=== PATIENT | male | born 1980 | race African-American/Black ===

== ENCOUNTER 2018-03-19 22:06 | Emergency (ER) | payer OTHER ==
[~2018-03-19] VITALS: Ht 172.7 cm; Wt 62.1 kg
[~2018-03-19 22:06] MED LIST: DOCU-138 PO; FERR-63 PO; LORA1TAB PO; MULT-1146 PO; OMEP40CA34 PO
[2018-03-20] MEDS ORDERED: IBUPROFEN 600MG TABLET PO ONE (03:30)
[2018-03-20 04:24] VITALS: BP 131/83
== END 2018-03-20 04:15 | disposition home or self-care (01) ==
LOC: ER 22:46
DX: M65.4 Radial styloid tenosynovitis [de Quervain] (principal); D64.9 Anemia, unspecified; J45.909 Unspecified asthma, uncomplicated; K21.9 Gastro-esophageal reflux disease without esophagitis
CPT/HCPCS: 99283

== ENCOUNTER 2018-08-26 21:43 | Emergency (ER) | payer OTHER ==
[~2018-08-26] VITALS: Ht 172.7 cm; Wt 60.1 kg
[2018-08-26 22:37] VITALS: BP 118/80
[2018-08-27] MEDS ORDERED: ALBUTEROL (0.083%) 2.5MG/3ML NEB HHN STA (00:46)
== END 2018-08-27 01:21 | disposition home or self-care (01) ==
LOC: ER 21:43
DX: J45.901 Unspecified asthma with (acute) exacerbation (principal); K21.9 Gastro-esophageal reflux disease without esophagitis; F17.200 Nicotine dependence, unspecified, uncomplicated; Z79.899 Other long term (current) drug therapy
CPT/HCPCS: 94640; 99283; J7611

== ENCOUNTER 2018-11-10 22:47 | Emergency (ER) | payer OTHER ==
[~2018-11-10] VITALS: Ht 170.2 cm; Wt 62.0 kg
[2018-11-11 04:27] VITALS: BP 128/89
== END 2018-11-11 04:28 | disposition home or self-care (01) ==
LOC: ER 22:47
DX: J45.901 Unspecified asthma with (acute) exacerbation (principal)
CPT/HCPCS: 99283

== ENCOUNTER 2019-01-14 19:01 | Emergency (ER) | payer OTHER ==
[~2019-01-14] VITALS: Ht 170.2 cm; Wt 61.7 kg
[2019-01-14 19:35] VITALS: BP 135/85
== END 2019-01-14 22:19 | disposition left against medical advice (07) ==
LOC: ER 19:01
DX: R42 Dizziness and giddiness (principal); J45.909 Unspecified asthma, uncomplicated; Z79.899 Other long term (current) drug therapy
CPT/HCPCS: 99281

== ENCOUNTER 2019-11-19 20:43 | Emergency (ER) | payer OTHER ==
[~2019-11-19] VITALS: Ht 167.6 cm; Wt 65.0 kg
[~2019-11-19 20:43] MED LIST changes: +OMEP40CA12 PO; -OMEP40CA34 PO
[2019-11-19 23:54] VITALS: BP 140/93
== END 2019-11-19 23:55 | disposition home or self-care (01) ==
LOC: ER 20:43
DX: J06.9 Acute upper respiratory infection, unspecified (principal); J45.909 Unspecified asthma, uncomplicated
CPT/HCPCS: 99283

== ENCOUNTER 2022-06-04 01:57 | Emergency (ER) | payer OTHER ==
[~2022-06-04] VITALS: Ht 167.6 cm; Wt 61.0 kg
[~2022-06-04 01:57] MED LIST changes: -OMEP40CA12 PO; +OMEP40CA20 PO
[2022-06-04] MEDS ORDERED: PREDNISONE 20MG TABLET PO ONE (03:00)
[2022-06-04] MEDS ORDERED: ALBUTEROL (0.083%) 2.5MG/3ML NEB HHN ONE (03:00)
[2022-06-04] MEDS ORDERED: P50 MT (04:46)
[2022-06-04] MEDS ORDERED: ALBU18HF2 IH (04:46)
[2022-06-04 06:07] VITALS: BP 124/74
== END 2022-06-04 06:12 | disposition home or self-care (01) ==
LOC: ER 01:57
DX: J45.901 Unspecified asthma with (acute) exacerbation (principal); Z79.899 Other long term (current) drug therapy
CPT/HCPCS: 93005; 94640; 99283; J7512; Z7610

== ENCOUNTER 2022-06-09 19:07 | Emergency (ER) | payer OTHER ==
[~2022-06-09] VITALS: Ht 165.1 cm; Wt 68.0 kg
[~2022-06-09 19:07] MED LIST changes: +ALBU18HF2 IH; +P50 MT
[2022-06-09 19:24] VITALS: BP 134/64
== END 2022-06-09 22:56 | disposition left against medical advice (07) ==
LOC: ER 19:07
DX: Z53.21 Procedure and treatment not carried out due to patient leaving prior to being seen by health care provider (principal)

== ENCOUNTER 2024-01-02 22:30 | Emergency (ER) | payer MEDICAID, OTHER ==
[~2024-01-02] VITALS: Ht 162.6 cm; Wt 72.0 kg
[2024-01-02 22:34] VITALS: O2SAT 100
[2024-01-02] MEDS: LIDOCAINE HCL/PF 1% 10 MG/ML 5ML VIAL INFIL ONE (22:45)
[2024-01-02] MEDS: BACITRACIN ZINC OINT UDPKT TOP ONE (22:45)
[2024-01-02] MEDS: TETANUS, DIPHTHERIA, PERTUSSIS VAC/PF 0.5ML (>10YR OLD) IM ONE (23:26)
[2024-01-02] MEDS: ACETAMINOPHEN 325MG TABLET PO ONE (23:27)
[2024-01-03] MEDS: LORAZEPAM 1MG TABLET PO ONE (02:22)
[2024-01-03 04:39] VITALS: BP 128/82; PULSE 95; RESP 16; TEMP 97.7
== END 2024-01-03 04:47 | disposition home or self-care (01) ==
LOC: ER 22:30
DX: S01.511A Laceration without foreign body of lip, initial encounter (principal); F84.0 Autistic disorder; J45.909 Unspecified asthma, uncomplicated; Y08.89XA Assault by other specified means, initial encounter; Y93.89 Activity, other specified; Y92.89 Other specified places as the place of occurrence of the external cause; Y99.8 Other external cause status
CPT/HCPCS: 12011; 99284; 70486; J3490; Z7610; 90715

== ENCOUNTER 2024-12-19 12:34 | Emergency (ER) | payer MEDICAID ==
[~2024-12-19] VITALS: Ht 172.7 cm; Wt 63.5 kg
[2024-12-19 12:40] VITALS: O2SAT 99
[2024-12-19] MEDS ORDERED: NAPR-1176 MT (14:39)
[2024-12-19 15:03] VITALS: BP 140/84; PULSE 81; RESP 16; TEMP 36.7; O2SAT 99
== END 2024-12-19 15:15 | disposition home or self-care (01) ==
LOC: ER 12:34
DX: S39.011A Strain of muscle, fascia and tendon of abdomen, initial encounter (principal); Z79.899 Other long term (current) drug therapy; W08.XXXA Fall from other furniture, initial encounter; Y93.89 Activity, other specified; Y92.89 Other specified places as the place of occurrence of the external cause; Y99.8 Other external cause status
CPT/HCPCS: 99282

== ENCOUNTER 2025-10-10 19:14 | Emergency (ER) | payer OTHER, MEDICAID ==
[~2025-10-10] VITALS: Ht 165.1 cm; Wt 66.7 kg
[~2025-10-10 19:14] MED LIST changes: +NAPR-1176 MT
[2025-10-10 19:15] VITALS: O2SAT 99
[2025-10-10 19:56] VITALS: BP 159/85; TEMP 37.1
[2025-10-10] MEDS: DEXAMETHASONE 10 MG/ML VIAL IM ONE (20:41)
[2025-10-10 21:32] VITALS: PULSE 115; RESP 22; O2SAT 98
[2025-10-10] MEDS: IPRATROPIUM/ALBUTEROL 0.5-3(2.5)MG/3ML NEB HHN ONE (21:32)
[2025-10-10] MEDS ORDERED: PRED5TAB48 MT (22:18)
[2025-10-10] MEDS ORDERED: ALBU18HF2 IH (22:18)
== END 2025-10-10 22:33 | disposition home or self-care (01) ==
LOC: ER 19:14
DX: J45.901 Unspecified asthma with (acute) exacerbation (principal); I10 Essential (primary) hypertension; Z79.1 Long term (current) use of non-steroidal anti-inflammatories (NSAID); Z79.899 Other long term (current) drug therapy
CPT/HCPCS: 71045; 94640; 93005; 96372; 99283; J1100; Z7610 ×3; 94070